=== PATIENT | female | born 1990 | race Caucasian/White ===

== ENCOUNTER 2019-09-14 07:56 | Outpatient (CLI) | payer MEDICARE, MEDICAID, SELFPAY ==
--- NOTE | 2019-09-26 06:12 | SLEEP_ITS ---
Basic Nocturnal Polysomnogram DATE OF STUDY: 09/14/2019 REASON FOR THE STUDY: Excessive daytime sleepiness, poor quality sleep. HISTORY: This patient is a 28-year-old female, 60 inches tall, weighing 170 pounds with a body mass index of 33.2. Occasionally at night, she wakes up and is unable to catch her breath until she uses her inhaler. This started about 3 years ago. She does have asthma. She does not have restful sleep and this has been going on for 10 years. There is a family history with her father having sleep apnea. She frequently snores and is occasionally loud enough that others complain about it. She occasionally has trouble with gasping for breath at night. She frequently has trouble sleeping with a cold. She occasionally has been told by others that she has abnormal sleep at night. She frequently sweats excessively at night, but never notices her heart pounding or beating irregularly at night. She frequently falls asleep during the day, rarely involuntarily, never while driving. She does not have loss of muscle tone with strong emotion. She occasionally has daytime difficulty due to excessive sleepiness. She is currently disabled. She occasionally feels paralyzed on waking or falling asleep. She frequently has vivid dreamlike scenes upon awakening or falling asleep. She is never afraid to go to sleep. She occasionally has nightmares. She frequently remembers her dreams. She occasionally has racing thoughts, feelings of sadness, depression, and anxiety. She frequently has muscular tension. She occasionally notices parts of her body jerking. She occasionally kicks at night. She does not have crawly achy feelings in her legs. She rarely has leg pain at night. She frequently has morning jaw pain. She rarely grinds her teeth during sleep. She constantly is bothered by pain during the day and is awakened by pain at night, feels stiff in the morning with sore achy muscles and wakes up with pain in the neck and spine. She has nightmares, stomach problems, fatigue, memory problems, insomnia, and poor appetite. Normal bedtime is 12 midnight with a variable amount of time to fall asleep. She wakes up multiple times at night. She will frequently turn over and try to reposition. She wakes up at 11 a.m. Weekend schedule is the same. Her sleep is disturbed by joint pain, asthma, temperature both heat and cold. Her social life is suboptimal and she has to pass on doing things due to excessive fatigue. She does take naps. A short nap is not refreshing. She is drowsy in the morning for 3 hours or longer. MEDICAL COMORBIDITIES: Poorly controlled asthma, Loeys-Anibal syndrome with abnormal collagen, aortic aneurysm replaced in 2005, depression, migraine headaches, psoriasis, thyroid disease. MEDICATIONS: 1. Breo 200 mcg 1 puff daily. 2. Albuterol rescue medication as needed for shortness of breath. 3. 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 HABITS: No tobacco. One to two caffeinated beverages a day. Rare alcohol. DESCRIPTION OF THE STUDY: On the [place] Sleepiness Scale, her score is 15. This was conducted as a basic nocturnal polysomnogram in the Sleep Lab using M/A-COM multiple channel system including EOG, EEG, submental EMG, EKG, nasal and oral airflow using thermistors and nasal pressure sensors, chest and abdominal belts for body position data, pulse oximetry, video monitoring. The study was scored using CMS guidelines. Duration of the study was 478.5 minutes. Sleep time was 447 minutes. Sleep efficiency was 93.8%. Sleep latency was 5.1 minutes. The patient took 2 mg of Lunesta at bedtime. She had 33 awakenings and spent 5.2% of the study awake after sleep onset, 24.4 minutes. Sleep architecture showed 12.1% stage 1 sleep, 67.2% stage 2 sleep, 15.5% stage 3 sl
== END 2019-09-14 07:57 | disposition home or self-care (01) ==
LOC: ANHCSM 07:57
PROVIDERS: PCP Nurse Practitioner; Visit Provider Internal Medicine Critical Care Medicine
DX: G47.33 Obstructive sleep apnea (adult) (pediatric) (principal)
CPT/HCPCS: 95810

== ENCOUNTER 2020-01-05 14:46 | Outpatient (CLI) | payer MEDICARE, MEDICAID, SELFPAY ==
--- NOTE | 2020-01-08 14:20 | WPDSIXMINUTE ---
Six Minute Walk Six Minute Walk: DOS: 01/05/2020 REQUESTING: Dr. Tobias REASON FOR TESTING: Shortness of breath SIX MINUTE WALK This test was conducted per ATS guidelines, on room air. Initial saturation was 96%, and pulse was 82. She walked without stopping to rest, completing 1100 feet / 335 meters. Saturation varied from 93% to 98%. Pulse varied from 78 to 102. IMPRESSION: This is a normal walk study without desaturation. No need for supplemental O2 with exertion. NIOX: Exhaled nitric oxide is 19 ppb, within the normal range. No evidence of increased airway inflammation. The patient is currently taking Breo daily, and does have have need to use her ProAir.
== END 2020-01-05 14:47 | disposition home or self-care (01) ==
PROVIDERS: PCP Internal Medicine; Visit Provider Internal Medicine Critical Care Medicine
DX: J45.50 Severe persistent asthma, uncomplicated (principal); R06.02 Shortness of breath
CPT/HCPCS: 95012

== ENCOUNTER 2020-07-05 08:52 | Outpatient (CLI) | payer MEDICARE, MEDICAID, SELFPAY | END 2020-07-05 08:53 | disposition home or self-care (01) | LOC: ANHAUDIO 08:54 | PROVIDERS: PCP Nurse Practitioner; Visit Provider Otolaryngology | DX: H93.12 Tinnitus, left ear (principal); H90.3 Sensorineural hearing loss, bilateral | CPT/HCPCS: 92557; 92567 ==

== ENCOUNTER 2020-07-24 08:49 | Outpatient (CLI) | payer MEDICARE, MEDICAID, SELFPAY ==
--- NOTE | ~2020-07-24 | MR_ITS ---
EXAMINATION: MR IAC wo/w con EXAM DATE: 07/24/2020 10:31 INDICATION: Left-sided hearing loss. TECHNIQUE: Multi-sequential, multiplanar MR images of the brain, brainstem, internal auditory canals were obtained without contrast. Whole brain sagittal T1, axial diffusion, gradient echo (T2*), T1, T 2, FLAIR sequences obtained. High resolution coronal 3-D FIESTA, coronal T1 FSE, axial T1 FSPGR of t he internal auditory canals. Patient was then injected with 14 cc Multihance contrast intravenously. Postcontrast axial and coronal T1 weighted whole brain, axial and coronal high resolution T1 IAC seq uences obtained. There is no prior study for comparison. FINDINGS: Study is limited due to patient motion. No evidence of mastoid or middle ear opacification . The 7th/8th cranial nerve complexes are symmetric, normal in course and caliber. No cerebellopont ine angle masses. Posterior fossa unremarkable. There are no areas of restricted diffusion to suggest acute infarction. There is no acute hemorrhage seen on the T2*, a hemosiderin sensitive sequence. No intraparenchymal brain mass. The ventricles a re normal in size. There are no extra-axial collections. Flow voids are seen in the cerebral arteri es on the T2-weighted sequences consistent with their expected patency. The orbits are unremarkable. Soft tissue is unremarkable. Mild mucoperiosteal thickening. IMPRESSION: Motion limiting the high-resolution sequences, but no abnormality suspected. Reviewed, dictated and finalized at location B. [employer] IMPRESSION: Motion limiting the high-resolution sequences, but no abnormality s uspected.
[2020-07-24 09:43] LABS: Estimated Glomerular Filt Rate > 60
== END 2020-07-24 08:50 | disposition home or self-care (01) ==
PROVIDERS: PCP Nurse Practitioner; Visit Provider Otolaryngology
DX: H90.5 Unspecified sensorineural hearing loss (principal)
CPT/HCPCS: 70553; A9577

== ENCOUNTER 2020-08-08 14:00 | Outpatient (RCR) | payer MEDICARE, MEDICAID, SELFPAY | END 2020-08-08 23:59 | disposition home or self-care (01) | LOC: ANHAUDIO 14:00 | PROVIDERS: PCP Nurse Practitioner; Referring Provider Otolaryngology; Visit Provider Otolaryngology | DX: Z46.1 Encounter for fitting and adjustment of hearing aid (principal) | CPT/HCPCS: 99199; V5160; V5261 ==

== ENCOUNTER 2021-01-24 13:30 | Outpatient (RCR) | payer MEDICARE, MEDICAID, SELFPAY | END 2021-01-24 23:59 | disposition home or self-care (01) | LOC: ANHAUDIO 13:30 | PROVIDERS: PCP Internal Medicine; Visit Provider Nurse Practitioner | DX: Z46.1 Encounter for fitting and adjustment of hearing aid (principal) | CPT/HCPCS: 99199 ==

== ENCOUNTER → 2021-03-12 07:30 | Outpatient (CLI) | payer MEDICARE, MEDICAID, SELFPAY ==
--- NOTE | 2021-04-06 18:35 | WPDSLEEPSTUD ---
Sleep Study Date of Study: 03/12/21 Ordering Provider: Jennie Tobias MD Interpreting Physician: Jennie Tobias MD Sleep Study Type: CPAP Titration Height: 1.52 m Weight: 77.328 kg Body Mass Index: 33.3 Neck Circumference (inches): 16 Minco: 13 Reason for Sleep Study * 09/14/2019 basic sleep study with moderate obstructive sleep apnea with an AHI of 24.8, which would probably be worse if the patient had actually had REM, desaturation to 83%, and possible bruxism. She presents for a CPAP titration Sleep History America Noel is a 30 year old woman with a history of obstructive sleep apnea on a basic sleep study 09/14/2019. She occasionally she wakes up and is unable to catch her breath until she uses her inhaler. This started several years ago. She does not have restful sleep. There is a family history with her father having sleep apnea. She frequently snores and is occasionally loud enough that others complain about it. She occasionally has trouble with gasping for breath at night. She frequently has trouble sleeping with a cold. She frequently sweats excessively at night, but never notices her heart pounding or beating irregularly at night. She frequently falls asleep during the day, rarely involuntarily, never while driving. She does not have loss of muscle tone with strong emotion. She occasionally has daytime difficulty due to excessive sleepiness. She is currently disabled. She occasionally feels paralyzed on waking or falling asleep. She frequently has vivid dreamlike scenes upon awakening or falling asleep. She is never afraid to go to sleep. She occasionally has nightmares. She frequently remembers her dreams. She occasionally has racing thoughts, feelings of sadness, depression, and anxiety. She frequently has muscular tension. She occasionally notices parts of her body jerking. She occasionally kicks at night. She does not have crawly achy feelings in her legs. She rarely has leg pain at night. She frequently has morning jaw pain. She rarely grinds her teeth during sleep. She constantly is bothered by pain during the day and is awakened by pain at night, feels stiff in the morning with sore achy muscles and wakes up with pain in the neck and spine. She has nightmares, stomach problems, fatigue, memory problems, insomnia, and poor appetite. Normal bedtime is 12 midnight with a variable amount of time to fall asleep. She wakes up multiple times at night. She will frequently turn over and try to reposition. She wakes up at 11 a.m. Weekend schedule is the same. Her sleep is disturbed by joint pain, asthma, temperature both heat and cold. Her social life is suboptimal and she has to pass on doing things due to excessive fatigue. She does take naps. A short nap is not refreshing. She is drowsy in the morning for 3 hours or longer. [facility] Past Medical History Medical History (Updated 04/06/21 @ 19:56 by Jennie Tobias MD) Allergies Anxiety Aortic dissection Arthritis Asthma Asthma, severe persistent, poorly-controlled Depression Heart disease Loeys-Anibal syndrome Migraines Obstructive sleep apnea (~02/2021) Psoriasis Thyroid disease Surgical History Surgical History (Reviewed 01/03/21 @ 11:09 by Luz Smith [facility]) H/O aortic root repair 2005 H/O spinal fusion X3 2008 Family History Family History (Reviewed 01/03/21 @ 11:09 by Luz Smith [facility]) Grandparent Diabetes mellitus Hypertension Family history of lung cancer Heart disease Diverticulitis Mother Hypertension Heart failure Hypothyroidism Sibling Family history of mental disorder Depression Anxiety Asthma Father Quadriplegia and quadriparesis Social History Social History (Reviewed 01/03/21 @ 11:09 by Luz Smith [facility]) Smoking status: Never smoker Alcohol intake: current Alcohol use details: Pt drinks rarely Substance use: current Substance use type: marijuana Other sub
[2021-04-06 18:36] VITALS: BMI 33.3
== END ==
PROVIDERS: PCP Internal Medicine; Visit Provider Internal Medicine Critical Care Medicine
DX: G47.33 Obstructive sleep apnea (adult) (pediatric) (principal)
CPT/HCPCS: 95811

== ENCOUNTER 2021-11-11 13:13 | Emergency (ER) | payer MEDICARE, MEDICAID, SELFPAY ==
[2021-11-11 13:19] VITALS: BP 120/56; PULSE 62; RESP 16; TEMP 36.9; O2SAT 99
--- NOTE | 2021-11-11 14:01 | ED.SKABFB ---
HPI - Skin/Abscess/Foreign Bdy General Chief complaint: Skin/Abscess/Foreign Body Stated complaint: Skin Sore Time Seen by Provider: 11/11/21 13:40 Source: patient, RN notes reviewed and old records reviewed Mode of arrival: ambulatory Limitations: no limitations History of Present Illness HPI narrative: 31 year old female present to [facility] care with moderate size abscess to the right axilla that has been present for the past 3 days,Patient states that she bought some special soap at a flea market that was suppose to be good to use on underarms and abscess appeared after using soap, Patient reports that she did poke a needle in the area and got only blood out, small amount of purulent drainage noted from areas today. Patient denies any fevers, chills or sweats reports that area is painful. MD complaint: abscess/boil Onset (ago): day(s) (3) Tetanus up to date: yes Location: RUE (Axilla) Severity: moderate Severity scale (1-10): 3 Quality: burning Pain Consistency: constant Treatments prior to arrival: attempted to drain pus at home and other (warm compresses.) Related Data Home Medications Medication Instructions Recorded Confirmed baclofen 10 mg PO BID 08/09/19 07/01/21 gabapentin 600 mg PO TID 08/09/19 07/01/21 cetirizine 10 mg tablet 10 mg PO DAILY 08/30/19 07/01/21 lasmiditan 50 mg tablet 50 mg PO ONCE PRN 12/26/20 07/01/21 metoprolol tartrate 25 mg tablet 50 mg PO BID tablet 07/01/21 07/01/21 Allergies Allergy/AdvReac Type Severity Reaction Status Date / Time meperidine Allergy Unknown Itching Verified 12/26/20 10:24 morphine Allergy Unknown Itching Verified 12/26/20 10:24 Sulfa (Sulfonamide Allergy Unknown Hives Verified 12/26/20 10:24 Antibiotics) MEPERIDINE HCL Allergy Mild Unknown Uncoded 12/26/20 10:24 Contrast Media Allergy Unknown Anaphylaxis Uncoded 12/26/20 10:24 Review of Systems Review of Systems: CONSTITUTIONAL: Denies fever, chills, or sweats. EYES: Denies visual changes, redness, or discharge. ENT: Denies rhinorrhea, congestion, sore throat, or otalgia. CARDIOVASCULAR: Denies chest pain, palpitations, or edema. RESPIRATORY: Denies cough or dyspnea. GASTROINTESTINAL: Denies abdominal pain, nausea, vomiting, or diarrhea. GENITOURINARY: Denies dysuria or hematuria. SKIN: Denies rash or itching.abscess to left axilla with some induration of tissue redness, no warmth noted of tissue approximately 2cm diameter MUSCULOSKELETAL:Chronic back pain, joint pain, or myalgia. NEUROLOGIC: Denies headache, numbness, or weakness. PSYCHIATRIC: Positive for history of anxiety or depression. All systems reviewed & are unremarkable except as noted in HPI and below PMFSH Past Medical History Medical History Allergies Anxiety Aortic dissection Arthritis Asthma Asthma, severe persistent, poorly-controlled Depression Heart disease Loeys-Anibal syndrome Migraines Obstructive sleep apnea (~02/2021) Psoriasis Thyroid disease Surgical History Surgical History H/O aortic root repair 2006 H/O spinal fusion X3 2008 Family History Family History Grandparent Diabetes mellitus Hypertension Family history of lung cancer Heart disease Diverticulitis Mother Hypertension Heart failure Hypothyroidism Sibling Family history of mental disorder Depression Anxiety Asthma Father Quadriplegia and quadriparesis Social History Social History Smoking status: Never smoker Alcohol intake: current Alcohol use details: Pt drinks rarely Substance use: current Substance use type: marijuana Other substance usage details: This is a sublingual spray, not smoked. Last use: A few days ago Comments At time of signature, agree with nursing past medical, surgical, social and family histor
== END 2021-11-11 14:19 | disposition home or self-care (01) ==
PROVIDERS: Emergency Provider Registered Nurse
DX: L02.411 Cutaneous abscess of right axilla (principal); M19.90 Unspecified osteoarthritis, unspecified site; G47.33 Obstructive sleep apnea (adult) (pediatric); J45.909 Unspecified asthma, uncomplicated; L40.9 Psoriasis, unspecified
CPT/HCPCS: 10060; 99213; G0463

== ENCOUNTER 2022-01-29 13:12 | Outpatient (RCR) | payer MEDICARE, MEDICAID, SELFPAY ==
[2022-01-29] MEDS: ACETAMINOPHEN 325 MG TABLET 650 MG PO (13:26)
[2022-01-29 13:27] VITALS: BP 116/56; PULSE 70; RESP 20; TEMP 36.6; O2SAT 97
[2022-01-29] MEDS: diphenhydrAMINE HCl CAP 25 MG CAPSULE PO (13:27)
[2022-01-29] MEDS: FAMOTIDINE 20 MG TABLET PO (13:27)
[2022-01-29] MEDS: BEBTELOVIMAB 175 MG/2 ML VIAL IV PUSH (13:46)
[2022-01-29 14:23] VITALS: BP 108/60; PULSE 66; O2SAT 97
== END 2022-01-29 16:00 ==
LOC: AMCINF 13:12
PROVIDERS: PCP Nurse Practitioner; Referring Provider Nurse Practitioner; Visit Provider Internal Medicine Hematology & Oncology
DX: U07.1 COVID-19 (principal); I25.10 Atherosclerotic heart disease of native coronary artery without angina pectoris; J44.9 Chronic obstructive pulmonary disease, unspecified
CPT/HCPCS: A9270; M0222; Q0222

== ENCOUNTER 2022-02-26 12:00 | Outpatient (CLI) | payer MEDICARE, MEDICAID, SELFPAY ==
--- NOTE | ~2022-02-26 | MMUS_ITS ---
EXAMINATION: MM diagnostic le BI w alexx, US breast LT complete HISTORY: Palpable left breast lump with pain TECHNIQUE: Additional 3-D tomosynthesis images of the breasts were performed and synthetic 2-D images were generated. CAD analysis was submitted and interpreted. High resolution left complete breast ult rasound was performed. COMPARISON: None BREAST PARENCHYMAL COMPOSITION: Breast composed of scattered areas of fibroglandular density FINDINGS: MAMMOGRAPHIC FINDINGS: There are no suspicious masses, calcifications or architectural distortion in either breast. There is focal asymmetry in the upper central breast breast which is less dense with spot compression views, consistent with superimposed fibroglandular tissue. ULTRASOUND: Complete US of all 4 quadrants of the breast and retroareolar region was reviewed. Normal heterogeneo us echotexture without focal solid or cystic mass. IMPRESSION: 1. No evidence for malignancy in either breast. 2. Routine yearly screening mammogram and regular clinical breast examination are recommended. BI-RADS Category 1: Negative Reviewed, dictated and finalized at location A. IMPRESSION: 1. No evidence for malignancy in either breast. 2. Routine yearly screening mammogram and regular clinical breast examination a re recommended. BI-RADS Category 1: Negative
== END 2022-02-26 12:01 | disposition home or self-care (01) ==
PROVIDERS: PCP Internal Medicine; Visit Provider Nurse Practitioner
DX: N63.10 Unspecified lump in the right breast, unspecified quadrant (principal); N63.20 Unspecified lump in the left breast, unspecified quadrant; N64.4 Mastodynia
CPT/HCPCS: 76641; 77062; 77066; G0279

== ENCOUNTER 2022-10-07 09:32 | Outpatient (CLI) | payer MEDICARE, MEDICAID, SELFPAY | END 2022-10-07 09:33 | disposition home or self-care (01) | PROVIDERS: PCP Internal Medicine; Visit Provider Otolaryngology | DX: H69.83 Other specified disorders of Eustachian tube, bilateral (principal); H90.3 Sensorineural hearing loss, bilateral | CPT/HCPCS: 92557; 92567; 99199 ==

== ENCOUNTER 2022-10-14 13:51 | Outpatient (RCR) | payer MEDICARE, MEDICAID, SELFPAY | END 2022-10-14 23:59 | disposition home or self-care (01) | LOC: ANHAUDIO 13:51 | PROVIDERS: PCP Internal Medicine; Visit Provider Internal Medicine | DX: Z46.1 Encounter for fitting and adjustment of hearing aid (principal) | CPT/HCPCS: 99199 ==

== ENCOUNTER 2023-05-11 14:14 | Outpatient (CLI) | payer MEDICARE, MEDICAID, SELFPAY ==
--- NOTE | ~2023-05-11 | XR_ITS ---
XR shoulder RT min 2V DATE: 05/11/2023 14:42 INDICATION: Right shoulder pain TECHNIQUE: 4 views COMPARISON: None FINDINGS: Status post sternotomy. No fracture or dislocation, periosteal reaction or bone destruction. Normal alignment at the acromioc lavicular and glenohumeral joints. No abnormal soft tissue calcification of the right shoulder. IMPRESSION: No significant radiographic abnormality of the right shoulder Reviewed, dictated and finalized at location A.
== END 2023-05-11 14:15 | disposition home or self-care (01) ==
PROVIDERS: PCP Internal Medicine; Visit Provider Nurse Practitioner
DX: M25.511 Pain in right shoulder (principal)
CPT/HCPCS: 73030

== ENCOUNTER 2023-08-27 10:10 | Emergency (ER) | payer MEDICARE, MEDICAID, SELFPAY ==
[2023-08-27 10:18] VITALS: BP 110/60; PULSE 65; RESP 16; TEMP 36.6; O2SAT 99
--- NOTE | 2023-08-27 10:43 | ED.URI ---
HPI - URI/Sore Throat General Chief Complaint: Upper Respiratory Infection Stated Complaint: Ear Pain/Sinus Pain Time Seen by Provider: 08/27/23 10:43 Source: patient Mode of arrival: ambulatory Limitations: no limitations History of Present Illness HPI Narrative: 32-year-old female presents with complaint of nasal congestion, sinus pressure, postnasal drainage intermittent sore throat, intermittent cough for the past 10 days. Reports bilateral ear pain, worse to left ear with crackly noises. Afebrile. Taking Zyrtec daily. Patient cannot take nasal decongestants due to history of aortic dissection. Denies nausea vomiting diarrhea. No chest pain or shortness breath. All systems reviewed and negative except as noted above. Related Data Home Medications Medication Instructions Recorded Confirmed cetirizine 10 mg tablet (Zyrtec) 10 mg PO DAILY 08/30/19 04/01/23 metoprolol tartrate 25 mg tablet 50 mg PO BID 07/01/21 04/01/23 estradiol 1 mg tablet mg 08/27/23 Allergies Allergy/AdvReac Type Severity Reaction Status Date / Time meperidine Allergy Unknown Itching Verified 08/27/23 10:18 morphine Allergy Unknown Itching Verified 08/27/23 10:18 Sulfa (Sulfonamide Allergy Unknown Hives Verified 08/27/23 10:18 Antibiotics) Contrast Media Allergy Unknown Anaphylaxis Uncoded 08/27/23 10:18 Review of Systems Review of Systems: CONSTITUTIONAL: Denies fever, chills, or sweats. EYES: Denies visual changes, redness, or discharge. ENT: Reports rhinorrhea, congestion, sore throat, bilateral ear pain with crackling noises. CARDIOVASCULAR: Denies chest pain, palpitations, or edema. RESPIRATORY: Reports cough. Denies dyspnea. GASTROINTESTINAL: Denies abdominal pain, nausea, vomiting, or diarrhea. GENITOURINARY: Denies dysuria or hematuria. SKIN: Denies rash or itching. MUSCULOSKELETAL: Denies back pain, joint pain, or myalgia. NEUROLOGIC: Denies headache, numbness, or weakness. PSYCHIATRIC: Denies anxiety or depression. All other systems reviewed are negative, except as documented in HPI. [facility] Past Medical History Medical History Acute bronchitis Allergies Anxiety Aortic dissection Arthritis Asthma Asthma, severe persistent, poorly-controlled COVID-19 Depression Heart disease Loeys-Anibal syndrome Migraines Obstructive sleep apnea (~02/2021) Psoriasis Thyroid disease Surgical History Surgical History H/O aortic root repair 2005 H/O spinal fusion X3 1999, 2008 Family History Family History Grandparent Diabetes mellitus Hypertension Family history of lung cancer Heart disease Diverticulitis Mother Hypertension Heart failure Hypothyroidism Sibling Family history of mental disorder Depression Anxiety Asthma Father Quadriplegia and quadriparesis Social History Social History Social History: Caffeine-soda daily Smoking status: Never smoker Alcohol intake: current Alcohol use details: Pt drinks rarely Substance use: current Substance use type: marijuana Other substance usage details: This is a sublingual spray, not smoked. Last use: A few days ago Lack of Transportation: No Lack of Food: Never True Current Housing: I Have Housing Concerned About Future Housing: No Difficulty Paying Gas/Electric Bills: No Difficulty Paying for Meds: No Currently Unemployed: No Education: Associate Degree Comments At time of signature, agree with nursing past medical, surgical, social and family history. There is no relevant family history pertinent to the presenting complaint. Exam Narrative: GENERAL: This is a well-nourished, well-developed patient, in no apparent distress. HEAD: normocephalic, atraumatic. EYES: PERRL. Sclera cl
== END 2023-08-27 11:04 | disposition home or self-care (01) ==
PROVIDERS: Emergency Provider Nurse Practitioner Family; PCP Internal Medicine
DX: J01.90 Acute sinusitis, unspecified (principal); B96.89 Other specified bacterial agents as the cause of diseases classified elsewhere
CPT/HCPCS: 99213; G0463

== ENCOUNTER 2023-10-11 19:01 | Emergency (ER) | payer MEDICARE, MEDICAID, SELFPAY ==
[2023-10-11 19:14] VITALS: BP 113/60; PULSE 70; RESP 16; TEMP 36.6; O2SAT 99
--- NOTE | 2023-10-11 19:21 | ED.SKABFB ---
HPI - Skin/Abscess/Foreign Bdy General Chief complaint: Skin/Abscess/Foreign Body Stated complaint: left cheek Time Seen by Provider: 10/11/23 19:21 Source: patient Mode of arrival: ambulatory Limitations: no limitations History of Present Illness HPI narrative: 32 year old female who presents to [facility] care with complaints of swelling, redness and tenderness to the left side of her face for the past 4-5 days, Patient reports that she had a small pimple to her left check and she popped it and now increased redness, swelling and tenderness with some warmth to area with dark center. Patient has applied warm compresses to site but no OTC topical medications or oral OTC medications taken. MD complaint: abscess/boil Onset (ago): day(s) (4-5days) Severity: moderate Treatments prior to arrival: other (warm compresses) Related Data Home Medications Medication Instructions Recorded Confirmed cetirizine 10 mg tablet (Zyrtec) 10 mg PO DAILY 08/30/19 09/14/23 metoprolol tartrate 25 mg tablet 50 mg PO BID 07/01/21 09/14/23 estradiol 1 mg tablet mg 08/27/23 09/14/23 Allergies Allergy/AdvReac Type Severity Reaction Status Date / Time Iodinated Contrast Media Allergy Unknown Unknown Verified 09/14/23 10:56 meperidine Allergy Unknown Itching Verified 09/14/23 10:56 morphine Allergy Unknown Itching Verified 09/14/23 10:56 Sulfa (Sulfonamide Allergy Unknown Hives Verified 09/14/23 10:56 Antibiotics) Review of Systems Review of Systems: CONSTITUTIONAL: Denies fever, chills, or sweats. CARDIOVASCULAR: Denies chest pain, palpitations, or edema. RESPIRATORY: Denies cough or dyspnea. GASTROINTESTINAL: Denies abdominal pain, nausea, vomiting SKIN: Reports redness and swelling to her left cheek. Denies present purulent drainage, induration to left facial cheek noted with some warmth, no fluctuance of tissue MUSCULOSKELETAL: Denies myalgia. NEUROLOGIC: Denies headache, numbness All systems reviewed & are unremarkable except as noted in HPI and below PMFSH Past Medical History Medical History Acute bronchitis Allergies Anxiety Aortic dissection Arthritis Asthma Asthma, severe persistent, poorly-controlled COVID-19 Depression Heart disease [facility]-Anibal syndrome Migraines Obstructive sleep apnea (~02/2021) Psoriasis Thyroid disease Surgical History Surgical History H/O aortic root repair 2006 H/O spinal fusion X3 1999, 2008 History of hysterectomy History of meniscectomy of left knee x2 Family History Family History Grandparent Diabetes mellitus Hypertension Family history of lung cancer Heart disease Diverticulitis Mother Hypertension Heart failure Hypothyroidism Lung cancer Sibling Family history of mental disorder Depression Anxiety Asthma Father Quadriplegia and quadriparesis Social History Social History Social History: Caffeine-soda daily Smoking status: Never smoker Alcohol intake: current Alcohol use details: Pt drinks rarely Substance use: former Substance use type: marijuana Last use: a couple of months ago Do You Feel Safe in your Home?: Yes Lack of Transportation: No Lack of Food: Never True Current Housing: I Have Housing Concerned About Future Housing: No Difficulty Paying Gas/Electric Bills: No Difficulty Paying for Meds: No Currently Unemployed: No Education: Associate Degree Difficulty w/ Childcare or Family Care: Decline to Answer Living arrangements: with family Occupation/Education: unemployed Comments At time of signature, agree with nursing past medical, surgical, social and family history. There is no relevant family history pertinent to the presenting complaint Exam Narrative: GENERAL: Well-appeari
== END 2023-10-11 19:42 | disposition home or self-care (01) ==
PROVIDERS: Emergency Provider Registered Nurse; PCP Internal Medicine
DX: L02.01 Cutaneous abscess of face (principal); M19.90 Unspecified osteoarthritis, unspecified site; J45.909 Unspecified asthma, uncomplicated; Z86.16 Personal history of COVID-19; L40.9 Psoriasis, unspecified
CPT/HCPCS: 99213; G0463

== ENCOUNTER 2024-07-17 15:26 | Emergency (ER) | payer MEDICARE, MEDICAID, SELFPAY ==
[2024-07-17 15:34] VITALS: BP 103/59; PULSE 78; RESP 16; TEMP 37; O2SAT 96
--- NOTE | 2024-07-17 16:42 | ED_ITS ---
HPI - URI/Sore Throat General Chief Complaint: Upper Respiratory Infection Stated Complaint: SOB Time Seen by Provider: 07/17/24 16:36 Source: patient and RN notes reviewed Mode of arrival: ambulatory Limitations: no limitations History of Present Illness HPI Narrative: Patient presents today with a 2 week history dry cough and a one-week history of wheezing and shortness of breath with exertion. Denies recent fever. She has been using an albuterol inhaler 3-4 times per day, cough drops without much relief. History of asthma. She is a nonsmoker. Related Data Home Medications ?Medication ?Instructions ?Recorded ?Confirmed ?Last Taken ?Type cetirizine 10 mg tablet (Zyrtec) 10 mg PO DAILY 08/30/19 01/25/24 Unknown History metoprolol tartrate 25 mg tablet 50 mg PO BID 07/01/21 01/25/24 Unknown History estradiol 1 mg tablet mg 08/27/23 01/25/24 Unknown History topiramate 50 mg tablet 50 mg PO BID 10/20/23 01/25/24 Unknown History Allergies Allergy/AdvReac Type Severity Reaction Status Date / Time Iodinated Contrast Media Allergy Unknown Unknown Verified 07/17/24 16:02 meperidine Allergy Unknown Itching Verified 07/17/24 16:02 morphine Allergy Unknown Itching Verified 07/17/24 16:02 Sulfa (Sulfonamide Allergy Unknown Hives Verified 07/17/24 16:02 Antibiotics) levofloxacin (From Levaquin) AdvReac Severe Other Verified 07/17/24 16:43 Review of Systems Review of Systems: CONSTITUTIONAL: Denies body aches, fever, chills, or sweats. EYES: Denies visual changes, redness, or discharge. ENT: Denies rhinorrhea, congestion, sore throat, or otalgia. CARDIOVASCULAR: Denies chest pain, palpitations, or edema. RESPIRATORY:+ cough, shortness of breath, wheezing GASTROINTESTINAL: Denies abdominal pain, nausea, vomiting, or diarrhea. GENITOURINARY: Denies dysuria or hematuria. SKIN: Denies rash, itching, or wounds. MUSCULOSKELETAL: Denies back pain, joint pain, or myalgia. NEUROLOGIC: Denies headache, numbness, tingling, or weakness. PSYCH: Denies depression or anxiety. FOR[facility]LY [facility] Past Medical History Medical History COVID-19 Aortic dissection Obstructive sleep apnea (~02/2021) Psoriasis Asthma, severe persistent, poorly-controlled Acute bronchitis Arthritis Thyroid disease Heart disease Migraines Allergies Depression Anxiety Asthma Loeys-Anibal syndrome Surgical History Surgical History History of hysterectomy History of meniscectomy of left knee x2 H/O spinal fusion X3 1999, 2008 H/O aortic root repair 2006 Family History Family History Grandparent Diabetes mellitus Hypertension Family history of lung cancer Heart disease Diverticulitis Mother Hypertension Heart failure Hypothyroidism Lung cancer Sibling Family history of mental disorder Depression Anxiety Asthma Father Quadriplegia and quadriparesis Social History Social History Social History: Caffeine-soda daily Smoking status: Never smoker Alcohol intake: current Alcohol use details: Pt drinks rarely Substance use: former Substance use type: marijuana Last use: a couple of months ago Do You Feel Safe in your Home?: Yes Lack of Transportation: No Lack of Food: Never True Current Housing: I Have Housing Concerned About Future Housing: No Difficulty Paying Gas/Electric Bills: No Difficulty Paying for Meds: No Currently Unemployed: No Education: Associate Degree Difficulty w/ Childcare or Family Care: Decline to Answer Living arrangements: with family Occupation/Education: unemployed Gender identity (if verbalized by the patient): Female Comments At time of signature, I have reviewed and agree with nursing past medical, surgical, social and family history unless otherwise noted. Please see nursing chart for further information. There is no relevant family history pertinent to the presenting complaint Exam Narrative: GENERAL: Well-appearing, well-nourished, and in no acute distress. HEAD: Normocephalic, atraumatic. EYES: EOMI. No redness or drainage. Conjunctivae normal. ENT: Mucous membranes pink and moist. Nares clear. No rhinorrhea. TMs normal bilaterally. Throat normal. Uvula midline. NECK: Normal AROM. CHEST: No respiratory distress. Crackle in the bilateral lower lobes, expiratory wheezing throughout. HEART: Regular rate and rhythm. No murmur appreciated. EXTREMITIES: Normal range of motion. No edema. SKIN: Warm, dry, no rash. Capillary refill normal. Normal skin turgor. NEURO: No focal deficits. Alert and oriented x3. Gait steady. PSYCH: Normal affect. No signs of depression or anxiety. Course Course Level of Care: Express Care Visit Vital Signs Vital signs: Vital Signs Temperature 98.6 F 07/17/24 15:34 Pulse Rate 78 07/17/24 15:34 Respiratory Rate 16 07/17/24 15:34 Blood Pressure 103/59 L 07/17/24 15:34 Pulse Oximetry 96 07/17/24 15:34 Oxygen Delivery Room Air 07/17/24 15:34 Temperature 98.6 F 07/17/24 15:34 Pulse Rate 78 07/17/24 15:34 Respiratory Rate 16 07/17/24 15:34 Blood Pressure 103/59 L 07/17/24 15:34 Pulse Oximetry 96 07/17/24 15:34 Oxygen Delivery Room Air 07/17/24 15:34 Reviewed MDM - URI/Sore Throat MDM Narrative Medical decision making narrative: Unable to complete a chest x-ray at this facility at this time due to machine failure. Patient will be treated with a course of Augmentin, prednisone for lower respiratory infection. Will refill patient's albuterol inhaler. Anticipatory guidance given. Differential Diagnosis Differential diagnosis: Likely upper respiratory infection, bronchitis and other (Pneumonia, asthma exacerbation) Critical Care Time Critical Care Time Critical Care Time: No Discharge Plan Discharge Clinical Impression: Acute lower respiratory infection Asthma exacerbation Qualifiers: Asthma severity: unspecified severity Asthma persistence: unspecified Qualified Code(s): J45.901 - Unspecified asthma with (acute) exacerbation Patient Disposition: Home, Self-Care Condition: Stable Instructions: Antibiotic Form, Community Acquired Pneumonia (DC) Additional Instructions: Please take all medications as prescribed. Rest and stay hydrated. Follow-up with your PCP next week if symptoms are not improving. Please go to the ER if symptoms worsen. Patient Language: Citizen Of [place] Prescriptions: New prednisone 50 mg tablet 50 mg PO DAILY 5 Days Qty: 5 0RF albuterol sulfate 90 mcg/actuation HFA aerosol inhaler 2 inh inhalation Q4-6H PRN (Reason: shortness of breath or wheezing) Qty: 8.5 0RF amoxicillin-pot clavulanate 875-125 mg tablet 1 tablet PO Q12H 10 Days Qty: 20 0RF No Action metoprolol tartrate 25 mg tablet 50 mg PO BID estradiol 1 mg tablet hydroxyzine HCl 10 mg tablet 10 mg PO DAILY PRN (Reason: anxiety/sleep) Qty: 30 1RF cetirizine [Zyrtec] 10 mg tablet 10 mg PO DAILY losartan 50 mg tablet 50 mg PO BID Qty: 90 0RF topiramate 50 mg tablet 50 mg PO BID albuterol sulfate 90 mcg/actuation HFA aerosol inhaler See Rx Instructions .ROUTE .COMPLEX Qty: 8.5 2RF Dose Instruction: USE ONE TO TWO PUFF(S) EVERY 4-6 HOURS NEEDED NEEDED FOR FOR SHORTNESS OF BREATH Rx Instructions: USE ONE TO TWO PUFF(S) EVERY 4-6 HOURS NEEDED NEEDED FOR FOR SHORTNESS OF BREATH pantoprazole 40 mg tablet,delayed release (DR/EC) 40 mg PO QAM Qty: 30 3RF Rx Instructions: DUE FOR APPOINTMENTIN JUNE fluticasone furoate-vilanterol [Breo Ellipta] 200-25 mcg/dose blister with device 1 inh inhalation DAILY Qty: 60 1RF duloxetine [Cymbalta] 60 mg capsule,delayed release(DR/EC) 60 mg PO DAILY Qty: 90 1RF Rx Instructions: To be taken with 30mg capsules for total of 90mg PO daily gabapentin 300 mg capsule 300 mg PO BID Qty: 180 0RF Rx Instructions: DUE FOR APPOINTMENT IN JUNE duloxetine 30 mg capsule,delayed release(DR/EC) 30 mg PO DAILY Qty: 90 1RF Rx Instructions: To be taken with 60mg capsule for total of 90mg PO daily bupropion HCl 300 mg tablet extended release 24 hr 300 mg PO QAM Qty: 30 0RF Rx Instructions: NEEDS APPOINTMENT FOR FURTHER REFILLS levothyroxine [Synthroid] 112 mcg tablet 112 mcg PO DAILY Qty: 30 0RF Rx Instructions: NEEDS APPOINTMENT FOR FURTHER REFILLS Follow-up/Referrals: Brandon Dover DO [Primary Care Provider] - Time of Disposition: 16:48
== END 2024-07-17 16:52 | disposition home or self-care (01) ==
PROVIDERS: Emergency Provider Nurse Practitioner; PCP Internal Medicine
DX: J22 Unspecified acute lower respiratory infection (principal); J45.901 Unspecified asthma with (acute) exacerbation
CPT/HCPCS: 99213; G0463

== ENCOUNTER 2024-08-08 14:17 | Emergency (ER) | payer MEDICARE, MEDICAID, SELFPAY ==
--- NOTE | ~2024-08-08 | XR_ITS ---
XR foot LT min 3V Ordering provider: Bailee Rausch NP History: . Slipped on ice yesterday. Pain to lateral side lt foot . Comparison: None. FINDINGS: BONES: No acute fracture or dislocation. JOINT SPACES: Normal. No tarsal coalition. SOFT TISSUES: Normal. IMPRESSION: No acute osseous abnormality left foot. Reviewed, dictated and finalized at location [facility]
[2024-08-08 14:26] VITALS: BP 109/62; PULSE 80; RESP 18; TEMP 36.4; O2SAT 97
--- NOTE | 2024-08-08 14:43 | ED.LOWEXIN ---
HPI - Extremity Injury (Lower) General Chief Complaint: Extremity Injury, Lower Stated Complaint: Left Foot Injury Time Seen by Provider: 08/08/24 15:11 Source: patient and RN notes reviewed Mode of arrival: ambulatory Limitations: no limitations History of Present Illness HPI Narrative: 33-year-old female presents with of left foot pain. Reports last night she slipped on slippery concrete steps causing lateral pain and swelling. She reports worsening pain with weight-bearing. Denies decreased strength, sensation, range of motion MD complaint: foot injury Related Data Home Medications ?Medication ?Instructions ?Recorded ?Confirmed ?Last Taken ?Type cetirizine 10 mg tablet (Zyrtec) 10 mg PO DAILY 08/30/19 08/08/24 Unknown History metoprolol tartrate 25 mg tablet 50 mg PO BID 07/01/21 08/08/24 Unknown History estradiol 1 mg tablet mg 08/27/23 01/25/24 Unknown History topiramate 50 mg tablet 50 mg PO BID 10/20/23 08/08/24 Unknown History Allergies Allergy/AdvReac Type Severity Reaction Status Date / Time Iodinated Contrast Media Allergy Unknown Unknown Verified 08/08/24 14:19 meperidine Allergy Unknown Itching Verified 08/08/24 14:19 morphine Allergy Unknown Itching Verified 08/08/24 14:19 Sulfa (Sulfonamide Allergy Unknown Hives Verified 08/08/24 14:19 Antibiotics) levofloxacin (From Levaquin) AdvReac Severe Other Verified 08/08/24 14:19 Review of Systems Review of Systems: CONSTITUTIONAL: Denies malaise, chills, sweats, or fever. SKIN: Denies rash or itching, open skin, laceration, abrasion, redness, warmth, swelling. MUSCULOSKELETAL: Reports left knee pain NEUROLOGIC: Denies numbness, weakness All systems reviewed & are unremarkable except as noted in HPI and below PMFSH Past Medical History Medical History COVID-19 Aortic dissection Obstructive sleep apnea (~02/2021) Psoriasis Asthma, severe persistent, poorly-controlled Acute bronchitis Arthritis Thyroid disease Heart disease Migraines Allergies Depression Anxiety Asthma Loeys-Anibal syndrome Surgical History Surgical History History of hysterectomy History of meniscectomy of left knee x2 H/O spinal fusion X3 1999, 2008 H/O aortic root repair 2006 Family History Family History Grandparent Diabetes mellitus Hypertension Family history of lung cancer Heart disease Diverticulitis Mother Hypertension Heart failure Hypothyroidism Lung cancer Sibling Family history of mental disorder Depression Anxiety Asthma Father Quadriplegia and quadriparesis Social History Social History Social History: Caffeine-soda daily Smoking status: Never smoker Alcohol intake: current Alcohol use details: Pt drinks rarely Substance use: former Substance use type: marijuana Last use: a couple of months ago Do You Feel Safe in your Home?: Yes Lack of Transportation: No Lack of Food: Never True Current Housing: I Have Housing Concerned About Future Housing: No Difficulty Paying Gas/Electric Bills: No Difficulty Paying for Meds: No Currently Unemployed: No Education: Associate Degree Difficulty w/ Childcare or Family Care: Decline to Answer Living arrangements: with family Occupation/Education: unemployed Gender identity (if verbalized by the patient): Female Comments At time of signature, agree with nursing past medical, surgical, social and family history. There is no relevant family history pertinent to the presenting complaint Exam Narrative: GENERAL: Well-appearing, well-nourished, and in no acute distress. HEAD: Normocephalic, atraumatic. EYES: PERRLA, conjunctivae clear NECK: Supple. CHEST: Speaks in full sentences. No respiratory distress. HEART: Regular rate and rhythm. Normal and equal peripheral pulses. EXTREMITIES: Left ankle foot, digits have grossly normal strength and sensation, grossly normal range of motion. Mild lateral foot and ankle edema without erythema or ecchymosis. Normal sensation with sensitivity to light touch and pain. Lateral foot tenderness. No open wounds, no skin tenting, no devitalized tissue or atrophy, no trophic changes, no obvious deformity, alignment normal, nearby joints and structures intact. Distal pulses palpable and equal bilaterally, skin warm, dry, pink. Capillary refill less than 3 seconds. SKIN: Warm, dry, no rash. NEURO: Alert and oriented x3. PSYCH: Normal mood and affect Course Course Emergency Course: Patient is aware of diagnosis, understands and agrees to treatment plan. Anticipatory guidance given. Patient agrees to follow-up as directed and is aware of reasons to seek care at the emergency department. Portions of this record may have been created with voice recognition software Level of Care: Express Care Visit Vital Signs Vital signs: Vital Signs Temperature 97.6 F 08/08/24 14:26 Pulse Rate 80 08/08/24 14:26 Respiratory Rate 18 08/08/24 14:26 Blood Pressure 109/62 08/08/24 14:26 Pulse Oximetry 97 08/08/24 14:26 Oxygen Delivery Room Air 08/08/24 14:26 Temperature 97.6 F 08/08/24 14:26 Pulse Rate 80 08/08/24 14:26 Respiratory Rate 18 08/08/24 14:26 Blood Pressure 109/62 08/08/24 14:26 Pulse Oximetry 97 08/08/24 14:26 Oxygen Delivery Room Air 08/08/24 14:26 Reviewed. MDM - Extremity Injury (Lower) MDM Narrative Medical decision making narrative: Patients injury and pain is consistent with musculoskeletal etiology. No signs of neurological or vascular compromise on exam. Compartments and tissues are soft without signs of compartment syndrome. Pain is felt appropriate for further evaluation on an outpatient basis. Imaging Data My impression: Images reviewed, interpreted by radiologist, agree, see report. Radiologist's impression: XR foot LT min 3V Ordering provider: Bailee Rausch NP History: . Slipped on ice yesterday. Pain to lateral side lt foot . Comparison: None. FINDINGS: BONES: No acute fracture or dislocation. JOINT SPACES: Normal. No tarsal coalition. SOFT TISSUES: Normal. IMPRESSION: No acute osseous abnormality left foot. Critical Care Time Critical Care Time Critical Care Time: No Discharge Plan Discharge Clinical Impression: Foot sprain Patient Disposition: Home, Self-Care Condition: Stable Instructions: Foot Sprain (ED) Additional Instructions: Avoid activities that cause pain until the pain subsides. Ice to the area 20-30 minutes 4-6 times a day Elevate above heart Elastic wrap as directed for comfort for the next 5-7 days Crutches as directed if needed Tylenol for pain Follow up with your primary care provider if the condition is not improving within 1 week. If the condition worsens with numbness, tingling, decrease sensation with weakness seek treatment in the emergency room immediately. Patient Language: [place] Prescriptions: No Action metoprolol tartrate 25 mg tablet 50 mg PO BID albuterol sulfate 90 mcg/actuation HFA aerosol inhaler 2 inh inhalation Q4-6H PRN (Reason: shortness of breath or wheezing) Qty: 8.5 0RF estradiol 1 mg tablet hydroxyzine HCl 10 mg tablet 10 mg PO DAILY PRN (Reason: anxiety/sleep) Qty: 30 1RF cetirizine [Zyrtec] 10 mg tablet 10 mg PO DAILY losartan 50 mg tablet 50 mg PO BID Qty: 90 0RF topiramate 50 mg tablet 50 mg PO BID albuterol sulfate 90 mcg/actuation HFA aerosol inhaler See Rx Instructions .ROUTE .COMPLEX Qty: 8.5 2RF Dose Instruction: USE ONE TO TWO PUFF(S) EVERY 4-6 HOURS NEEDED NEEDED FOR FOR SHORTNESS OF BREATH Rx Instructions: USE ONE TO TWO PUFF(S) EVERY 4-6 HOURS NEEDED NEEDED FOR FOR SHORTNESS OF BREATH pantoprazole 40 mg tablet,delayed release (DR/EC) 40 mg PO QAM Qty: 30 3RF Rx Instructions: DUE FOR APPOINTMENTIN JUNE fluticasone furoate-vilanterol [Breo Ellipta] 200-25 mcg/dose blister with device 1 inh inhalation DAILY Qty: 60 1RF duloxetine [Cymbalta] 60 mg capsule,delayed release(DR/EC) 60 mg PO DAILY Qty: 90 1RF Rx Instructions: To be taken with 30mg capsules for total of 90mg PO daily gabapentin 300 mg capsule 300 mg PO BID Qty: 180 0RF Rx Instructions: DUE FOR APPOINTMENT IN JUNE duloxetine 30 mg capsule,delayed release(DR/EC) 30 mg PO DAILY Qty: 90 1RF Rx Instructions: To be taken with 60mg capsule for total of 90mg PO daily bupropion HCl 300 mg tablet extended release 24 hr 300 mg PO QAM Qty: 30 0RF Rx Instructions: NEEDS APPOINTMENT FOR FURTHER REFILLS levothyroxine [Synthroid] 112 mcg tablet 112 mcg PO DAILY Qty: 30 0RF Rx Instructions: NEEDS APPOINTMENT FOR FURTHER REFILLS Follow-up/Referrals: Brandon Dover DO [Primary Care Provider] - Time of Disposition: 15:18
== END 2024-08-08 15:22 | disposition home or self-care (01) ==
PROVIDERS: Emergency Provider Nurse Practitioner; PCP Internal Medicine
DX: S93.602A Unspecified sprain of left foot, initial encounter (principal); W10.9XXA Fall (on) (from) unspecified stairs and steps, initial encounter; J45.909 Unspecified asthma, uncomplicated; L40.9 Psoriasis, unspecified; Q87.89 Other specified congenital malformation syndromes, not elsewhere classified; Z86.16 Personal history of COVID-19
CPT/HCPCS: 73630; 99213; G0463